=== PATIENT | male | born 1970 | race Caucasian/White ===

== ENCOUNTER 2021-10-02 01:28 | Inpatient (IN) | payer MEDICARE, OTHER ==
[~2021-10-02] VITALS: Ht 152.4 cm; Wt 87.1 kg
[~2021-10-02 01:28] MED LIST: REMERON30 MG PO
[2021-10-02 01:51] LABS: HEMOGLOBIN 15.7 gm/dl (14.0-17.5); RED BLOOD COUNT 5.08 M/UL (4.20-5.50); WHITE BLOOD COUNT 3.9 K/UL (4.5-11.0)
[2021-10-02 02:32] LABS: BUN/CREATININE RATIO 13 (0-10)
[2021-10-02] MEDS ORDERED: ASPIRIN EC81 MG PO (09:35)
[2021-10-02] MEDS ORDERED: BUSPIRONE HCL5 MG PO (09:35)
[2021-10-02] MEDS ORDERED: AMLODIPINE BESY10 MG PO (09:35)
[2021-10-02] MEDS ORDERED: CITALOPRAM HBR20 MG PO (09:36)
[2021-10-02] MEDS ORDERED: LISINOPRIL40 MG PO (09:36)
[2021-10-02] MEDS ORDERED: DICLOFENAC SODI75 MG PO (09:36)
[2021-10-02] MEDS ORDERED: METOPROLOL TAR100 MG PO (09:37)
[2021-10-02] MEDS ORDERED: ROBAXIN 750 MG750 MG PO (09:37)
[2021-10-02] MEDS ORDERED: PROTONIX40 MG PO (09:37)
[2021-10-03 03:12] LABS: HEMOGLOBIN 14.2 gm/dl (14.0-17.5)
[2021-10-03 03:45] LABS: RED BLOOD COUNT 4.55 M/UL (4.20-5.50); WHITE BLOOD COUNT 22.9 K/UL (4.5-11.0)
[2021-10-03 03:53] LABS: BUN/CREATININE RATIO 21 (0-10)
[2021-10-03 11:14] LABS: HBSAG SCREEN Negative (Negative); HEP A AB, IGM Negative (Negative); HEP B CORE AB, IGM Negative (Negative); HEP C VIRUS AB >11.0 (0.0-0.9)
[2021-10-04 04:32] LABS: HEMOGLOBIN 14.9 gm/dl (14.0-17.5); RED BLOOD COUNT 4.8 M/UL (4.20-5.50); WHITE BLOOD COUNT 17.6 K/UL (4.5-11.0)
[2021-10-04 04:58] LABS: BUN/CREATININE RATIO 22 (0-10)
[2021-10-04] MEDS ORDERED: OMNICEF 300 MG300 MG PO (12:30)
== END 2021-10-04 13:04 | disposition home or self-care (01) | DRG 872 ==
LOC: ER1 01:28 → CDU 06:35 → PROG CARE 19:30
PROVIDERS: Emergency Medicine; Family Medicine; ADMIT Internal Medicine
DX: A41.9 Sepsis, unspecified organism (principal); N12 Tubulo-interstitial nephritis, not specified as acute or chronic; E87.2 Acidosis; N30.00 Acute cystitis without hematuria; G93.40 Encephalopathy, unspecified; I25.10 Atherosclerotic heart disease of native coronary artery without angina pectoris; Z20.822 Contact with and (suspected) exposure to COVID-19; M51.36 Other intervertebral disc degeneration, lumbar region; F17.200 Nicotine dependence, unspecified, uncomplicated; R74.01 Elevation of levels of liver transaminase levels; N40.0 Benign prostatic hyperplasia without lower urinary tract symptoms; E86.0 Dehydration; I10 Essential (primary) hypertension; B34.9 Viral infection, unspecified; Z91.14 Patient's other noncompliance with medication regimen; Z90.89 Acquired absence of other organs; Z98.890 Other specified postprocedural states; Z90.49 Acquired absence of other specified parts of digestive tract; Z95.1 Presence of aortocoronary bypass graft; Z79.899 Other long term (current) drug therapy; Z79.82 Long term (current) use of aspirin
CPT/HCPCS: ECHO; 36415; 71045; 71260; 76705; 80053; 80074; 80202; 80307; 81001; 82550; 82553; 83605; 83874; 84153; 84484; 85025; 85027; 85652; 86140; 87040; 87086; 93005; 93306; 96374; 99285; J1650; J2543; J3370; J3480; J7070; Q9967; U0002

== ENCOUNTER 2022-04-15 14:47 | Observation (INO) | payer OTHER ==
[~2022-04-15] VITALS: Ht 180.3 cm; Wt 88.5 kg
[~2022-04-15 14:47] MED LIST changes: +AMLODIPINE BESY10 MG PO; +ASPIRIN EC81 MG PO; +ATORVASTATIN CA20 MG PO; +BUSPIRONE HCL5 MG PO; +CITALOPRAM HBR20 MG PO; +DICLOFENAC SODI75 MG PO; +LISINOPRIL40 MG PO; +METOPROLOL TAR100 MG PO; +NICOTINE PATCH1 EAC2 TOP; +OMNICEF 300 MG300 MG PO; +PROTONIX40 MG PO; +ROBAXIN 750 MG750 MG PO
[2022-04-15 15:44] LABS: RED BLOOD COUNT 5.11 M/UL (4.20-5.50); WHITE BLOOD COUNT 9.9 K/UL (4.5-11.0)
[2022-04-15 16:07] LABS: BUN/CREATININE RATIO 17 (0-10)
[2022-04-15] MEDS ORDERED: TYLENOL EXTRA500 MG PO (17:21)
--- NOTE | 2022-04-16 19:00 | NUR ---
pt c/o chest pain notified dr. betts he give verbal order for nitro (see emar) will report to coil tier nurse.
[2022-04-17 06:30] LABS: RED BLOOD COUNT 5.4 M/UL (4.20-5.50)
[2022-04-17 06:32] LABS: WHITE BLOOD COUNT 6.1 K/UL (4.5-11.0)
[2022-04-17 06:51] LABS: BUN/CREATININE RATIO 17 (0-10)
== END 2022-04-17 17:01 | disposition home or self-care (01) ==
LOC: ER1 14:47 → MED SURG 4 16:58 → CDU 16:58 → MED SURG 4 16:58
PROVIDERS: Internal Medicine; Physician Assistant; ADMIT Internal Medicine
PROC: B2111ZZ Fluoroscopy of Multiple Coronary Arteries using Low Osmolar Contrast (ICD-10-PCS; principal; 2022-04-17)
PROC: B2151ZZ Fluoroscopy of Left Heart using Low Osmolar Contrast (ICD-10-PCS; 2022-04-17)
PROC: 4A023N7 Measurement of Cardiac Sampling and Pressure, Left Heart, Percutaneous Approach (ICD-10-PCS; 2022-04-17)
DX: R07.89 Other chest pain (principal); R53.1 Weakness; T82.855A Stenosis of coronary artery stent, initial encounter; F19.10 Other psychoactive substance abuse, uncomplicated; I10 Essential (primary) hypertension; Z91.14 Patient's other noncompliance with medication regimen; I25.110 Atherosclerotic heart disease of native coronary artery with unstable angina pectoris; E78.5 Hyperlipidemia, unspecified; K21.9 Gastro-esophageal reflux disease without esophagitis; Y71.8 Miscellaneous cardiovascular devices associated with adverse incidents, not elsewhere classified
CPT/HCPCS: 36415; 70450; 70551; 71045; 80048; 80053; 80307; 82550; 82553; 82962; 83735; 83880; 84484; 85025; 87040; 93005; 93880; 96372; 99152; 99153; 99285; C1769; G0378; J1644; J1650; J2250; J3010; J7040; Q9967